=== PATIENT | female | born 1990 | race Caucasian/White ===

== ENCOUNTER → 2017-02-25 | Outpatient (CLI) | payer OTHER ==
[~2017-02-25] VITALS: Ht 180.3 cm; Wt 113.4 kg
[~2017-02-25] MED LIST: CELEXA20 MG PO; ERGOCALCIF50000 UNIT PO; MULTI VITAMIN1 EACH PO; XANAX 0.25 MG0.25 MG PO; ZANTAC 150MG T150 MG PO
--- NOTE | ~2017-02-25 | O ---
[facility] [place] [address] OPERATIVE REPORT Name: CASTAÑEDASHELTON Meghna Room #: REG [facility]#: [id number] Admission: 02/25/17 Attend Phys: Ramin Baldwin MD, Discharge: Date of : 89 Report #: [id number] THIS REPORT FOR: //name// CC: Ramin Baldwin Beatrice Ordonez DATE OF SERVICE: 02/25/2017 PREOPERATIVE DIAGNOSES: 1. Gastroesophageal reflux disease. 2. History of hiatal hernia. 3. Obesity. 4. Hypertension. POSTOPERATIVE DIAGNOSES: 1. Gastroesophageal reflux disease without esophagitis. 2. Hiatal hernia. 3. Obesity. 4. Hypertension. PROCEDURE PERFORMED: Thorough diagnostic esophagogastroduodenoscopy (EGD). SURGEON: Ramin Baldwin MD GRADES 6 THROUGH 8 TEACHER: None. ANESTHESIA: Monitored anesthesia care. ESTIMATED BLOOD LOSS: None. COMPLICATIONS: None appreciated. SPECIMENS: None. INDICATIONS: The patient is a 26-year-old overweight female with a history of undergoing an EGD a few years ago that she states returned positive for a hiatal hernia as well as small non-perforated gastric ulcers. The patient has been on numerous PPIs as well as Zantac and her symptoms were recalcitrant to maximal medical therapy. The patient is being evaluated for hiatal hernia repair with an antireflux procedure and as such, indication was for repeat EGD today to evaluate for the possibility of ongoing ulceration versus esophagitis and the possibility of Gordon esophagus. DESCRIPTION OF PROCEDURE: After explaining the risks, benefits and alternatives of the procedure with the patient in detail and obtaining consent, the patient was brought to the endoscopy suite supine on her hospital bed. After conducting [facility] [address] [place] [address] OPERATIVE REPORT Name: SHELTON CASTAÑEDA Room #: REG [facility].#: [id number] Admission: 02/25/17 Attend Phys: Ramin Baldwin MD, Discharge: Date of : 89 Report #: [id number] a thorough timeout procedure, verifying correct patient and procedure, the patient was placed in the left lateral position with all pressure points appropriately padded. Bite bloc was placed in the patient's mouth and she was given monitored anesthesia care. Once adequate anesthesia was obtained, the Moburstinon upper endoscope was used to intubate the oropharynx, was traversed down into the esophagus with ease. Pylorus was identified and intubated. The scope was advanced to the second portion of the duodenum. Slow and careful withdrawal of the EGD scope showed no evidence of duodenitis, gastritis, esophagitis, mass lesions or ulcerations. A retroflexion view of the scope within the gastric lumen showed presence of the hiatal hernia as reported. The scope was straightened out with stomach was fully desufflated and the scope was removed into the distal esophagus where the Z line was evaluated at approximately 38 cm from the incisors. Again, there was no evidence of esophagitis or dysplasia whatsoever. The scope was then removed via the oropharynx, passed off the field completing the procedure. At the end of the procedure, all instrument, needle and sponge counts were correct. The patient tolerated the procedure without incident, was awakened in the endoscopy room and transitioned to the recovery room in a stable condition with no apparent complications. <ELECTRONICALLY SIGNED> By: Ramin Baldwin MD, FACS 02/26/17 0914 [id number] Ramin Baldwin MD, FACS /nt
== END | disposition home or self-care (01) ==
LOC: GI 06:27
DX: K21.9 Gastro-esophageal reflux disease without esophagitis (principal); K44.9 Diaphragmatic hernia without obstruction or gangrene; E66.9 Obesity, unspecified; I10 Essential (primary) hypertension; F32.9 Major depressive disorder, single episode, unspecified; F41.9 Anxiety disorder, unspecified; F17.210 Nicotine dependence, cigarettes, uncomplicated; Z98.890 Other specified postprocedural states; Z90.49 Acquired absence of other specified parts of digestive tract
CPT/HCPCS: 62110; 62900

== ENCOUNTER → 2018-08-13 | Day surgery (SDC) | payer OTHER ==
[~2018-08-13] VITALS: Ht 180.3 cm; Wt 117.9 kg
[~2018-08-13] MED LIST changes: +DEXTROAMP-AMPHE20 MG PO; +SERTRALINE HCL100 MG PO; +SYMBICORT160 MCG/4. INH
== END | disposition home or self-care (01) ==
LOC: OR 05:41 → TBA 05:41 → OR 09:13
DX: K44.9 Diaphragmatic hernia without obstruction or gangrene (principal); Z53.9 Procedure and treatment not carried out, unspecified reason

== ENCOUNTER → 2020-04-26 | Outpatient (CLI) | payer OTHER ==
[~2020-04-26] MED LIST changes: +AMITRIPTYLINE H25 M2 PO; +NUVARING VAGIN1 EACH VAG; +TOPAMAX 25 MG T25 M1 PO
== END ==
LOC: LAB 08:08
PROVIDERS: ATTEND Family Medicine
DX: Z20.828 Contact with and (suspected) exposure to other viral communicable diseases (principal)

== ENCOUNTER → 2020-06-21 | Outpatient (CLI) | payer OTHER ==
[~2020-06-21] MED LIST changes: +ADDERALL 10 MG10 MG PO
== END ==
LOC: LAB 11:35
PROVIDERS: ATTEND Family Medicine
DX: Z20.822 Contact with and (suspected) exposure to COVID-19 (principal)

== ENCOUNTER → 2020-07-20 | Outpatient (CLI) | payer OTHER ==
[~2020-07-20] MED LIST changes: +LEVOFLOXACIN500 MG PO; +PREDNISONE 20 M20 M1 PO; +PROAIR HFA8.5 GM INH
== END ==
LOC: ULTRA 07-05 10:40 → CAT 10:30
PROVIDERS: ATTEND Family Medicine
DX: I15.2 Hypertension secondary to endocrine disorders (principal); R91.1 Solitary pulmonary nodule

== ENCOUNTER → 2020-09-07 | Outpatient (CLI) | payer OTHER | LOC: SJCVCIMAG 10:59 | PROVIDERS: ATTEND Internal Medicine | DX: I10 Essential (primary) hypertension (principal); R00.2 Palpitations; E78.5 Hyperlipidemia, unspecified; Z82.49 Family history of ischemic heart disease and other diseases of the circulatory system ==

== ENCOUNTER → 2021-01-09 | Day surgery (SDC) | payer OTHER ==
[~2021-01-09] VITALS: Ht 180.3 cm; Wt 108.9 kg
[~2021-01-09] MED LIST changes: +ADDERALL 20 MG20 M1 PO; +ADDERALL XR 3030 MG PO; +NORVASC 2.5 MG2.5 M1 PO; +WELLBUTRIN SR150 MG PO
--- NOTE | ~2021-01-09 | O ---
[facility] [address] [place] [address] OPERATIVE REPORT Name: SHELTON CASTAÑEDA Room #: REG [facility]..#: [id number] Admission: 01/09/21 Attend Phys: Vinh Francis MD Discharge: Date of : 89 Report #: [id number] THIS REPORT FOR: cc: Johanny Coffey MD, Nora P. 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 PROCEDURE: Exam under anesthesia, superficial fissurectomy and electrocautery of posterior midline anal fissure, partial right lateral internal anal sphincterotomy. FUR STYLIST: Vinh Francis MD ANESTHESIA: General endotracheal, local Marcaine 0.5% with epinephrine. INDICATIONS: The patient is a 30-year-old woman seen in [facility]. She has had an anal fissure since July. This has failed to heal despite prolonged conservative therapy using nifedipine and stool softeners. She has severe pain with every bowel movement. Anus is tight. Informed consent was obtained for partial right lateral internal anal sphincterotomy. She understands the risk of altered anal continence or incontinence. She wished to proceed. DESCRIPTION OF PROCEDURE: The patient in the prone jackknife position on the operating room table, smooth induction of general endotracheal anesthesia. Buttocks spread with tape. Anus and perineal region prepped with Betadine solution, sterilely draped in the usual fashion. Exam under anesthesia showed a deep chronic posterior midline anal fissure. The fissure was anesthetized with 0.5% Marcaine with epinephrine. Superficial fissurectomy with electrocautery was done. [place] retractor was placed in the anal canal and the internal sphincter muscle was placed on stretch on the right lateral aspect. Marcaine 0.5% with epinephrine injected in the submucosal intersphincteric plane. Needle tip electrocautery was used to make an incision over the intersphincteric groove. The internal sphincter muscle was identified. There was a dense between the blades of the retractor. Using a small Metzenbaum scissor, the distal portion of the internal sphincter muscle was divided to the level of the dentate line and no further. Hemostasis was achieved with electrocautery. Hemostasis was complete. Wound closed medially with three sutures of 5-[address] [address] OPERATIVE REPORT Name: SHELTON CASTAÑEDA Room #: REG [facility] M..#: [id number] Admission: 01/09/21 Attend Phys: Vinh Francis MD Discharge: Date of : 89 Report #: [id number] Monocryl. The lateral wound was left open to allow drainage. Marcaine 0.5% with epinephrine locally infiltrated for postop pain control. The patient tolerated the procedure well, was placed back in supine position and extubated. She will be discharged home today and see me in the office for followup. By: [id number] Vinh Francis MD /nt
[2021-01-09 11:13] VITALS: BP 126/91
[2021-01-09 13:34] VITALS: BP 126/91
== END | disposition home or self-care (01) ==
LOC: OR 09:56
PROVIDERS: ATTEND Specialist
DX: K60.1 Chronic anal fissure (principal); K62.89 Other specified diseases of anus and rectum; I10 Essential (primary) hypertension; F32.9 Major depressive disorder, single episode, unspecified; F41.9 Anxiety disorder, unspecified; F17.210 Nicotine dependence, cigarettes, uncomplicated; G47.30 Sleep apnea, unspecified; Z98.890 Other specified postprocedural states; Z20.822 Contact with and (suspected) exposure to COVID-19; Z79.899 Other long term (current) drug therapy; Z90.49 Acquired absence of other specified parts of digestive tract; Z98.51 Tubal ligation status
CPT/HCPCS: 50010; 50101; 50386; 51636; 56528; 62110; 62900; 70005